=== PATIENT | female | born 1985 | race Caucasian/White ===

== ENCOUNTER 2016-10-20 03:40 | Inpatient (IN) | payer BC, OTHER ==
[2016-10-20] VITALS (72 sets, daily range): BP systolic 91–159; BP diastolic 52–96; PULSE 16–173; TEMP 98–99.4
[~2016-10-20] VITALS: Ht 165.1 cm; Wt 114.1 kg
[~2016-10-20 03:40] MED LIST: BCP TD; LEXAPRO 10MG10 MG PO; VENTOLIN0.09 MG IH
[2016-10-20] MEDS ORDERED: PRENATAL1 TA7 PO (04:25)
[2016-10-20 05:07] LABS: BASO % 0.3 % (0.0-2.0); EOS # 0.3 (0.0-0.7); EOS % 2.6 % (0-4.0); GRAN # 7.3 (1.4-6.5); GRAN % 70.5 % (42.2-75.2); LYMPH # 1.9 (1.2-3.4); MEAN CELL VOLUME 88 fl (80.0-100.0); MEAN CORPUSCULAR HGB CONC 33 g/dl (33.0-37.0); MONO # 0.8 (0.1-0.6); PLATELET COUNT 338 K/mm3 (130-400); RED BLOOD COUNT 3.86 M/mm3 (4.10-5.30); REDCELL DISTRIBUTION WIDTH-CV 13.7 % (11.5-14.5); WHITE BLOOD COUNT 10.3 K/mm3 (4.8-10.8)
[2016-10-20 05:08] LABS: HEMATOCRIT 33.9 % (37.0-47.0); HEMOGLOBIN 11.3 g/dl (12.5-16.0); MEAN CORPUSCULAR HEMOGLOBIN 29 pg (27.0-31.0)
[2016-10-20 05:31] LABS: ADJUSTED CALCIUM 9.7 mg/dL (8.4-10.2); ALBUMIN 3.2 gm/dL (3.5-5.0); BILIRUBIN,TOTAL 0.5 mg/dL (0.0-1.0); CALCIUM 9.1 mg/dL (8.4-10.2); CREATININE, serum 0.68 mg/dL (0.52-1.25); TOTAL PROTEIN 6.7 gm/dL (6.4-8.2)
[2016-10-20 06:24] LABS: PH 6 (5-8); SQUAMOUS EPITHELIAL 20-50 /hpf; URINE APPEARANCE Cloudy; URINE BACTERIA None Seen /hpf; URINE BILIRUBIN Negative (NEGATIVE); URINE BLOOD 1+ (NEGATIVE); URINE COLOR Yellow; URINE GLUCOSE Negative (NEGATIVE); URINE KETONE Negative (NEGATIVE); URINE UROBILINOGEN Negative (NEGATIVE)
[2016-10-20 06:25] LABS: URINE WBC 0-2 /hpf
[2016-10-20] MEDS ORDERED: PERCOCET 325 MG1 TA2 PO (18:44)
[2016-10-20] MEDS ORDERED: MOTRIN 800800 MG/TAB PO (18:44)
[2016-10-20 21:08] LABS: HEMATOCRIT 27.2 % (37.0-47.0); HEMOGLOBIN 9.2 g/dl (12.5-16.0)
[2016-10-21] VITALS (9 sets, daily range): BP systolic 103–137; BP diastolic 51–80; PULSE 96–126; TEMP 97.6–98.7
[2016-10-21 11:43] LABS: HEMATOCRIT 22.3 % (37.0-47.0); HEMOGLOBIN 7.2 g/dl (12.5-16.0)
[2016-10-21 11:56] LABS: ADJUSTED CALCIUM 9.8 mg/dL (8.4-10.2); ALBUMIN 2.2 gm/dL (3.5-5.0); BILIRUBIN,TOTAL 0.4 mg/dL (0.0-1.0); CALCIUM 8.4 mg/dL (8.4-10.2); CREATININE, serum 0.97 mg/dL (0.52-1.25); POTASSIUM 3.8 mmol/L (3.4-5.0); TOTAL PROTEIN 4.9 gm/dL (6.4-8.2)
[2016-10-22] VITALS (22 sets, daily range): BP systolic 101–140; BP diastolic 51–97; PULSE 96–116; TEMP 98–98.7
[2016-10-22 00:29] LABS: BASO % 0.2 % (0.0-2.0); EOS # 0.2 (0.0-0.7); EOS % 1.5 % (0-4.0); LYMPH % 18.4 % (20.0-51.0); MEAN CELL VOLUME 90 fl (80.0-100.0); MEAN CORPUSCULAR HGB CONC 33 g/dl (33.0-37.0); MEAN PLATELET VOLUME 9.7 fl (7.4-10.4); MONO # 0.8 (0.1-0.6); MONO % 7.3 % (1.7-9.3); PLATELET COUNT 278 K/mm3 (130-400); RED BLOOD COUNT 2.45 M/mm3 (4.10-5.30); REDCELL DISTRIBUTION WIDTH-CV 14.5 % (11.5-14.5); WHITE BLOOD COUNT 11.1 K/mm3 (4.8-10.8)
[2016-10-22 00:32] LABS: HEMATOCRIT 22.1 % (37.0-47.0); MEAN CORPUSCULAR HEMOGLOBIN 29 pg (27.0-31.0)
[2016-10-22 00:33] LABS: HEMOGLOBIN 7.2 g/dl (12.5-16.0)
[2016-10-23 06:02] LABS: BASO % 0.3 % (0.0-2.0); EOS # 0.3 (0.0-0.7); EOS % 3.7 % (0-4.0); GRAN # 4.5 (1.4-6.5); GRAN % 63.3 % (42.2-75.2); LYMPH # 1.8 (1.2-3.4); LYMPH % 25.5 % (20.0-51.0); MEAN CELL VOLUME 88 fl (80.0-100.0); MEAN CORPUSCULAR HGB CONC 33 g/dl (33.0-37.0); MEAN PLATELET VOLUME 8.9 fl (7.4-10.4); MONO # 0.5 (0.1-0.6); MONO % 6.6 % (1.7-9.3); PLATELET COUNT 255 K/mm3 (130-400); RED BLOOD COUNT 2.86 M/mm3 (4.10-5.30); REDCELL DISTRIBUTION WIDTH-CV 14.3 % (11.5-14.5); WHITE BLOOD COUNT 7.1 K/mm3 (4.8-10.8)
[2016-10-23 06:14] LABS: HEMATOCRIT 25.2 % (37.0-47.0); HEMOGLOBIN 8.3 g/dl (12.5-16.0); MEAN CORPUSCULAR HEMOGLOBIN 29 pg (27.0-31.0)
[2016-10-23 06:40] VITALS: BP 118/67; PULSE 97; TEMP 97.9
[2016-10-23] MEDS ORDERED: FERROUS SU325 MG/TAB PO (11:09)
[2016-10-23] MEDS ORDERED: PERCOCET 325 MG1 TA2 PO (11:10)
[2016-10-23] MEDS ORDERED: IBU800 M1 PO (11:10)
== END 2016-10-23 13:00 | disposition home or self-care (01) | DRG 765 ==
LOC: LDRO 03:40 → LDR 04:22 → OB 19:15
PROVIDERS: Obstetrics & Gynecology
PROC: 10D00Z1 Extraction of Products of Conception, Low, Open Approach (ICD-10-PCS; principal; 2016-10-20)
DX: O42.02 Full-term premature rupture of membranes, onset of labor within 24 hours of rupture (principal); D62 Acute posthemorrhagic anemia; O62.0 Primary inadequate contractions; O99.013 Anemia complicating pregnancy, third trimester; Z3A.39 39 weeks gestation of pregnancy; Z37.0 Single live birth
CPT/HCPCS: J0690; J1885; J1940; J2175; J2270; J2370; J2400; J2405; J2550; J2590; J7120; P9016

== ENCOUNTER 2016-10-27 20:12 | Emergency (ER) | payer BC, OTHER ==
[~2016-10-27] VITALS: Ht 165.1 cm; Wt 90.9 kg
[~2016-10-27 20:12] MED LIST changes: +FERROUS SU325 MG/TAB PO; +IBU800 M1 PO; +MOTRIN 800800 MG/TAB PO; +PERCOCET 325 MG1 TA2 PO; +PRENATAL1 TA7 PO
[2016-10-27 20:19] VITALS: TEMP 98
[2016-10-27 22:48] LABS: BASO % 0.4 % (0.0-2.0); EOS # 0.3 (0.0-0.7); EOS % 3.8 % (0-4.0); GRAN # 5.9 (1.4-6.5); GRAN % 65.4 % (42.2-75.2); HEMATOCRIT 30.8 % (37.0-47.0); LYMPH # 1.8 (1.2-3.4); LYMPH % 19.4 % (20.0-51.0); MEAN CELL VOLUME 89 fl (80.0-100.0); MEAN CORPUSCULAR HEMOGLOBIN 29 pg (27.0-31.0); MEAN CORPUSCULAR HGB CONC 33 g/dl (33.0-37.0); MEAN PLATELET VOLUME 8.5 fl (7.4-10.4); MONO # 0.9 (0.1-0.6); PLATELET COUNT 434 K/mm3 (130-400); RED BLOOD COUNT 3.45 M/mm3 (4.10-5.30); REDCELL DISTRIBUTION WIDTH-CV 13.5 % (11.5-14.5)
[2016-10-27 22:52] LABS: INR 1.2 (0.8-3.0)
[2016-10-27 23:03] LABS: ADJUSTED CALCIUM 9.9 mg/dL (8.4-10.2); ALBUMIN 3.5 gm/dL (3.5-5.0); BILIRUBIN,TOTAL 0.5 mg/dL (0.0-1.0); CALCIUM 9.5 mg/dL (8.4-10.2); CREATININE, serum 0.78 mg/dL (0.52-1.25); POTASSIUM 4.2 mmol/L (3.4-5.0); TOTAL PROTEIN 6.8 gm/dL (6.4-8.2)
[2016-10-27 23:30] LABS: PH 5 (5-8); SQUAMOUS EPITHELIAL 0-2 /hpf; URINE APPEARANCE Hazy; URINE BACTERIA None Seen /hpf; URINE BILIRUBIN Negative (NEGATIVE); URINE BLOOD 3+ (NEGATIVE); URINE COLOR Yellow; URINE GLUCOSE Negative (NEGATIVE); URINE KETONE Trace (NEGATIVE); URINE UROBILINOGEN Negative (NEGATIVE)
[2016-10-27 23:31] LABS: URINE WBC 0-2 /hpf
[2016-10-27] MEDS ORDERED: NORMODYNE200 MG PO (23:51)
[2016-10-28 00:14] VITALS: BP 148/99; PULSE 82
== END 2016-10-28 00:16 | disposition home or self-care (01) ==
LOC: COL.ER 20:12
PROVIDERS: Family Medicine
DX: O16.5 Unspecified maternal hypertension, complicating the puerperium (principal); O90.81 Anemia of the puerperium; D64.9 Anemia, unspecified; O99.89 Other specified diseases and conditions complicating pregnancy, childbirth and the puerperium; R21 Rash and other nonspecific skin eruption
CPT/HCPCS: J2405; J7030

== ENCOUNTER 2017-02-15 07:52 | Emergency (ER) | payer BC ==
[~2017-02-15] VITALS: Ht 165.1 cm; Wt 90.9 kg
[~2017-02-15 07:52] MED LIST changes: +NORMODYNE200 MG PO
[2017-02-15 07:55] VITALS: TEMP 97.5
[2017-02-15 09:09] LABS: BASO % 0.3 % (0.0-2.0); EOS # 0.1 (0.0-0.7); GRAN # 5.2 (1.4-6.5); GRAN % 72.6 % (42.2-75.2); HEMATOCRIT 40.1 % (37.0-47.0); HEMOGLOBIN 12.8 g/dl (12.5-16.0); LYMPH # 1.4 (1.2-3.4); LYMPH % 19.5 % (20.0-51.0); MEAN CELL VOLUME 87 fl (80.0-100.0); MEAN CORPUSCULAR HEMOGLOBIN 28 pg (27.0-31.0); MEAN CORPUSCULAR HGB CONC 32 g/dl (33.0-37.0); MEAN PLATELET VOLUME 8.8 fl (7.4-10.4); MONO # 0.4 (0.1-0.6); MONO % 6.2 % (1.7-9.3); PLATELET COUNT 411 K/mm3 (130-400); RED BLOOD COUNT 4.63 M/mm3 (4.10-5.30); REDCELL DISTRIBUTION WIDTH-CV 14.3 % (11.5-14.5); WHITE BLOOD COUNT 7.1 K/mm3 (4.8-10.8)
[2017-02-15 09:29] LABS: ADJUSTED CALCIUM 9.4 mg/dL (8.4-10.2); ALANINE AMINOTRANSFERASE 41 U/L (9-52); ALBUMIN 4.4 gm/dL (3.5-5.0); ALKALINE PHOSPHATASE 124 U/L (50-136); ANION GAP 13 mmol/L (7-16); BILIRUBIN,TOTAL 0.8 mg/dL (0.0-1.0); BLOOD UREA NITROGEN 9 mg/dL (7-17); CALCIUM 9.7 mg/dL (8.4-10.2); CARBON DIOXIDE 24 mmol/L (22-30); CHLORIDE 102 mmol/L (98-107); CREATININE, serum 0.72 mg/dL (0.52-1.25); GLUCOSE 88 mg/dL (74-106); POTASSIUM 4.6 mmol/L (3.4-5.0); SODIUM 139 mmol/L (137-145); TOTAL PROTEIN 7.2 gm/dL (6.4-8.2)
[2017-02-15 09:36] LABS: ACETAMINOPHEN < 10 ug/mL (10-30); SALICYLATE < 1.0 mg/dL
[2017-02-15 10:36] LABS: AMPHETAMINE URINE POSITIVE; BARBITURATES URINE NEGATIVE; BENZODIAZEPINES URINE NEGATIVE; BUPRENORPHINE URINE NEGATIVE; METHADONE URINE NEGATIVE; OPIATES URINE NEGATIVE; OXYCODONE URINE NEGATIVE; PHENCYCLIDINE URINE NEGATIVE; PROPOXYPHENE URINE NEGATIVE; THC CANNABINOIDS URINE POSITIVE
[2017-02-15 14:17] VITALS: BP 120/91; PULSE 86
== END 2017-02-15 14:24 | disposition home or self-care (01) ==
LOC: COL.ER 07:52
PROVIDERS: Nurse Practitioner
DX: R45.851 Suicidal ideations (principal); F32.9 Major depressive disorder, single episode, unspecified; F41.9 Anxiety disorder, unspecified; F17.210 Nicotine dependence, cigarettes, uncomplicated; Z98.890 Other specified postprocedural states

== ENCOUNTER 2021-01-30 22:53 | Emergency (ER) | payer BC, MEDICAID ==
[~2021-01-30] VITALS: Ht 167.6 cm; Wt 90.9 kg
[2021-01-30 22:56] VITALS: TEMP 97.9
[2021-01-30] MEDS ORDERED: AMOXICILLIN 8751 TAB PO (23:11)
[2021-01-30] MEDS ORDERED: ZOFRAN ODT4 MG PO (23:11)
[2021-01-30 23:40] VITALS: BP 134/101; PULSE 95
== END 2021-01-31 00:14 | disposition home or self-care (01) ==
LOC: COL.ER 22:53
DX: K08.89 Other specified disorders of teeth and supporting structures (principal); K04.01 Reversible pulpitis; F17.210 Nicotine dependence, cigarettes, uncomplicated
CPT/HCPCS: J1885

== ENCOUNTER 2021-01-31 10:04 | Emergency (ER) | payer BC, MEDICAID ==
[~2021-01-31] VITALS: Ht 167.6 cm; Wt 90.9 kg
[~2021-01-31 10:04] MED LIST changes: +AMOXICILLIN 8751 TAB PO; +ZOFRAN ODT4 MG PO
[2021-01-31 11:26] VITALS: BP 125/85; PULSE 62; TEMP 96.7
== END 2021-01-31 11:27 | disposition home or self-care (01) ==
LOC: COL.ER 10:04
DX: K02.9 Dental caries, unspecified (principal); F17.210 Nicotine dependence, cigarettes, uncomplicated

== ENCOUNTER 2021-10-14 05:43 | Emergency (ER) | payer MEDICAID ==
[~2021-10-14] VITALS: Ht 167.6 cm; Wt 100.0 kg
[2021-10-14 05:45] VITALS: TEMP 98
[2021-10-14 07:08] LABS: ALANINE AMINOTRANSFERASE 50 U/L (0-55); ALBUMIN 3.4 gm/dL (3.5-5.0); ALKALINE PHOSPHATASE 111 U/L (40-150); ANION GAP 10 mmol/L (7-16); AST,SGOT 47 U/L (5-34); BILIRUBIN,TOTAL 0.2 mg/dL (0.2-1.2); BLOOD UREA NITROGEN 11 mg/dL (7-19); CALCIUM 8.3 mg/dL (8.4-10.2); CARBON DIOXIDE 21 mmol/L (22-29); CHLORIDE 107 mmol/L (98-107); CREATININE, serum 0.78 mg/dL (0.57-1.11); GLUCOSE 107 mg/dL (70-99); POTASSIUM 4.1 mmol/L (3.5-4.5); SODIUM 138 mmol/L (136-145); TOTAL PROTEIN 6.8 gm/dL (6.2-8.1)
[2021-10-14 07:26] LABS: TROPONIN-I < 0.010 ng/mL (0.00-0.033)
[2021-10-14 07:32] LABS: BASO % 0.5 % (0.0-2.0); GRAN # 2.1 K/mm3 (1.4-6.5); GRAN % 49.1 % (42.2-75.2); HEMATOCRIT 38.9 % (37.0-47.0); HEMOGLOBIN 12.8 g/dl (12.5-16.0); LYMPH # 1.3 K/mm3 (1.2-3.4); LYMPH % 31.4 % (20.0-51.0); MEAN CELL VOLUME 95 fl (80.0-100.0); MEAN CORPUSCULAR HEMOGLOBIN 31 pg (27-31); MEAN CORPUSCULAR HGB CONC 33 g/dl (33.0-37.0); MEAN PLATELET VOLUME 10.2 fl (7.4-10.4); MONO # 0.7 K/mm3 (0.1-0.6); MONO % 17.3 % (1.7-9.3); PLATELET COUNT 268 K/mm3 (130-400); RED BLOOD COUNT 4.08 M/mm3 (4.10-5.30); REDCELL DISTRIBUTION WIDTH-CV 13.2 % (11.5-14.5)
[2021-10-14] MEDS ORDERED: PROVENTIL0.09 MG/A1 IH (07:43)
[2021-10-14 09:08] VITALS: BP 120/81; PULSE 88
== END 2021-10-14 09:15 | disposition home or self-care (01) ==
LOC: COL.ER 05:43
PROVIDERS: Family Medicine; Personal Emergency Response Attendant
DX: U07.1 COVID-19 (principal); R79.1 Abnormal coagulation profile; J45.909 Unspecified asthma, uncomplicated; Z73.0 Burn-out; Z79.899 Other long term (current) drug therapy
CPT/HCPCS: J1885; J7030; Q9967